=== PATIENT | male | born 1985 | race Caucasian/White ===

== ENCOUNTER 2018-05-02 13:43 | Emergency (ER) | payer BC ==
[2018-05-02 14:49] VITALS: BP 132/82
--- NOTE | 2018-05-02 15:46 | UC ---
UC General HPI - HPI Summary HPI Summary: ill x 2 weeks with worsening sinus pain, pressure and congestion plus some dark yellow drainage. had a cough with congestion at onset that is all better. hx sinusitis and this is the same. - History of Current Complaint Chief Complaint: UCGeneralIllness Stated Complaint: SINUS/EAR COMPLAINT Time Seen by Provider: 05/02/18 15:40 Hx Obtained From: Patient Onset/Duration: Gradual Onset Timing: Constant Pain Intensity: 3 Associated Signs & Symptoms: Negative: Fever, Headache - Allergy/Home Medications Allergies/Adverse Reactions: Allergies Allergy/AdvReac Type Severity Reaction Status Date / Time No Known Allergies Allergy Verified 05/02/18 14:49 Home Medications: Home Medications Escitalopram Oxalate [Lexapro] 10 mg PO DAILY 05/02/18 [History Confirmed ] guaiFENesin ER TAB [Mucinex*] 600 mg PO BID 05/02/18 [History Confirmed 05/02/18 ] PMH/Surg Hx/FS Hx/Imm Hx - Additional Past Medical History Additional PMH: sinusitis Psychological History: Depression - Surgical History Surgical History: None - Family History Known Family History: Positive: Non-Contributory - Social History Alcohol Use: Weekly Substance Use Type: None Smoking Status (MU): Never Smoked Tobacco Review of Systems All Other Systems Reviewed And Are Negative: Yes ENT: Positive: Nasal Discharge, Sinus Congestion, Sinus Pain/Tenderness Physical Exam Triage Information Reviewed: Yes Appearance: Well-Appearing Vital Signs: Initial Vital Signs Temp 98.7 F 05/02/18 14:45 Pulse 64 05/02/18 14:45 Resp 16 05/02/18 14:45 BP 132/82 05/02/18 14:45 Pulse Ox 100 05/02/18 14:45 Vital Signs Reviewed: Yes Eyes: Positive: Conjunctiva Clear ENT: Positive: Pharynx normal, Nasal congestion, TMs normal, Sinus tenderness. Negative: Nasal drainage Neck: Positive: Supple, Nontender, No Lymphadenopathy Respiratory: Positive: Lungs clear, Normal breath sounds, No respiratory distress Cardiovascular: Positive: RRR, No Murmur Abdomen Description: Positive: Nontender Bowel Sounds: Positive: Present Musculoskeletal: Positive: ROM Intact Neurological: Positive: Alert Psychological: Positive: Age Appropriate Behavior Skin Exam: Normal Course/Dx - Diagnoses Provider Diagnosis: Otitis media, Sinusitis Discharge - Sign-Out/Discharge Documenting (check all that apply): Patient Departure All imaging exams completed and their final reports reviewed: No Studies - Discharge Plan Condition: Stable Disposition: HOME Prescriptions: Amoxicillin/Clavulanate TAB* [Augmentin TAB 875*] 875 mg PO BID 10 Days #20 tab Patient Education Materials: Sinusitis (ED), Ear Infection (ED) Referrals: Erickson Roman DO [Primary Care Provider] - 7 Days - Billing Disposition and Condition Condition: STABLE Disposition: Home
== END 2018-05-02 15:50 | disposition home or self-care (01) ==
LOC: UCCORT 13:43
DX: J32.9 Chronic sinusitis, unspecified (principal); H66.90 Otitis media, unspecified, unspecified ear
CPT/HCPCS: 99202; G0463